=== PATIENT | female | born 1935 | race Caucasian/White ===

== ENCOUNTER 2016-10-28 10:45 | Outpatient (CLI) | payer MEDICARE, BC ==
[~2016-10-28] VITALS: Ht 160 cm; Wt 67.3 kg
--- NOTE | ~2016-10-28 | HEMODYNAMI ---
PATIENT:SILVESTRE ALDANA MEDICAL RECORD: [id number] : 33 LOCATION:[facility] ADMISSION DATE: 10/28/16 Generatedon:10/28/201613:35 Patient name: SILVESTRE ALDANA Patient #: [id number] SSN: : [id number] Date of study: 10/28/2016 Page: Of Hemodynamic Procedure Report Patient Data Patient Demographics Procedure consent was obtained First Name: SILVESTRE Gender: Female Last Name: KATYA : 1935 [facility] Initial: DOMINGO Age: 81 year(s) Patient #: [id number] Race: Unknown Additional ID: [id number] Contact details Address: [address] [place] [address] State: [place] City: [facility] Zip code: [address] Past Medical History Allergies: No known allergies Admission Admission Data Admission Date: 10/28/2016 Admission Time: 10:45 Height (in.): 65 BSA: 1.73 (m2) Height (cm.): 165.1 BMI: 24.3 (kg/m2) Weight (lbs.): 146 Weight (kg.): 66.22 Lab Results Lab Result Date: 10/28/2016 Lab Result Time: 0:00 Biochemistry Name Units Result Min Max BUN mg/dl 18 --(---*)-- 7 18 Creatinine mg/dl 0.7 --(*---)-- 0.6 1.3 CBC Name Units Result Min Max Hemoglobin g/dl 15.4 --(-*--)-- 13.5 17.5 Procedure Procedure Types Cath Procedure Diagnostic Procedure LHC LH w/Coronaries Miscellaneous Procedures Moderate Sedation up to 15 minutes Procedure Description Procedure Date Procedure Date: 10/28/2016 Procedure Start Time: 13:16 Procedure End Time: 13:31 Procedure Staff Name Function Mikhail Ashley MD Performing Physician Trisha Gonzalez RT Scrub Ge Hernandez RN Nurse Rome Byrne RT Felt Strip Finisher Kane Simpson RT Monitor Procedure Data Cath Procedure Fluoroscopy Diagnostic fluoroscopy Total fluoroscopy Time: 1.9 time: 1.9 min min Diagnostic fluoroscopy Total fluoroscopy dose: 252 dose: 252 mGy mGy Contrast Material Contrast Material Type Amount (ml) Isovue 300 42 Entry Location Entry Primary Successful Side Size Upsize Upsize Entry Closure Succes sful Closure Location (Fr) 1 (Fr) 2 (Fr) Remarks Device Remarks Femoral Right 5 Fr Exoseal artery Diagnostic catheters Device Type Used For End Catheter Placement Cordis 5Fr JL 4.0 Left Coronary Catheter (MP) Angiography Cordis 5Fr 3DRC Catheter Right Coronary (MP) Angiography Diagnostic Infinity 5Fr Right Coronary AL 1 catheter Angiography Cordis 5Fr Pigtail LV Angiography Catheter (MP) Procedure Complications No complications Procedure Medications Medication Administration Route Dosage Oxygen NC 2 l/min Lidocaine 2% added to field 20 Heparin Flush Bag added to field 2 bags (1000units/500ml NS) 0.9% NaCl I.V. 100 ml/hr Versed I.V. 1 mg Fentanyl I.V. 50 mcg Versed I.V. 1 mg Fentanyl I.V. 50 mcg Hemodynamics Rest BSA: 1.73 (m2) HGB: 15.4 (g/dl) O2 Consumption: Estimated: 149.08 (ml/min) O2 Co nsumption indexed: Estimated:86.17 (ml/min/m) Heart Rate: 61 (bpm) Pressure Samples Time Site Value (mmHg) Purpose Heart Use Rate(bpm) 13:24 LV 163/0,22 EDP 82 13:25 AO (118) Pullback 89 13:25 LV 152/5,21 Pullback 89 Gradients Valve Time Site 1 Site Mean SEP/DFP Peak To Heart Use 2 (mmHg) (sec/min) Peak Rate (mmHg) (bpm) Aortic 13:25 LV AO 19 8 89 152/5,21 (118) Calculations Valve P-P Mean Valve Index Valve Source Name Gradient Area Flow (cm2) Aortic 19 19 Snapshots Pre Cath Intra NCS Post Cath Vital Signs Time Heart Resp SPO2 etCO2 [id number] NIBP (mmHg) Rhythm Pain Sedation Rate (ipm) (%) (mmHg) (mmHg) Status Level (bpm) 13:02:15 61 23 98 0 0 160/70(133) NSR 0 (11) 10(A) , No pain 13:06:40 63 18 100 0 0 150/71(111) NSR 0 (11) 10(A) , No pain 13:11:00 62 16 98 0 0 133/68(98) NSR 0 (11) 10(A) , No pain 13:15:10 68 16 97 0 0 116/78(102) NSR 0 (11) 9(A) , No pain 13:20:17 68 17 98 0 0 140/71(116) NSR 0 (11) 9(A) , No pain 13:25:38 66 15 98 0 0 126/71(113) NSR 0 (11) 9(A) , No pain 13:29:50 64 16 98 0 0 137/60(117) NSR 0 (11) 10(A) , No pain Medications Time Medication Route Dose Verified Delivered Reason Notes Effe ctiveness by by 12:50:04 Oxygen NC 2 Mikhail Buffie used for l/min Dion Hernandez RN procedure 13:05:27 Lidocaine 2% added 20ml Mikhail Buffie for local to vial Dion Hernandez RN anesthetic field 13:05:33 Heparin Flush added 2 Mikhail Buffie used for Bag to bags Dion Hernandez RN procedure (1000units/500ml field NS) 13:05:42 0.9% NaCl I.V. 100 Mikhail Buffie Per ml/hr Dion Hernandez RN physician 13:09:03 Versed I.V. 1 mg Mikhail Buffie for Dion Hernandez RN sedation 13:09:10 Fentanyl I.V. 50 Mikhail Buffie for mcg Dion Hernandez RN sedation 13:14:19 Versed I.V. 1 mg Mikhail Buffie for Dion Hernandez RN sedation 13:14:23 Fentanyl I.V. 50 Mikhail Buffie for mcg Dion Hernandez RN sedation Procedure Log Time Note 12:47:35 Patient Height : 65 cm 12:47:44 Patient Weight : 146 kg 12:50:04 Oxygen 2 l/min NC was administered by Ge Hernandez RN; used for procedure; 13:00:58 Vital chart was started 13:04:58 ACC Patient presents with Stable Angina CCS Anginal Class 2--Slight limitation of ordinary activity. 13:05:00 Diagnostic Cath status Elective 13:05:03 Kane TOMPKINS(R) sent for patient. Start room use. 13:05:17 Time tracking: Regular hours 13:05:21 Plan of Care:Hemodynamics will remain stable., Cardiac rhythm will remain stable., Comfort level will be maintained., Respiratory function will remain adequate., Patient/ family verbilizes understanding of procedure., Procedure tolerated without complication., Recovers from procedure without complications.. 13:05:26 Patient received from Pre/Post Procedure Room to CCL 1 Alert and oriented. Tansferred to table in Supine position. 13:05:27 Lidocaine 2% 20ml vial added to field was administered by Ge Hernandez RN; for local anesthetic; 13:05:28 Warm blankets applied, and dawna hugger turned on for patient comfort. 13:05:28 Correct patient and procedure confirmed by team. 13:05:29 Signed procedure consent form obtained from patient. 13:05:31 ECG and BP/O2 sat monitors applied to patient. 13:05:32 Baseline sample Acquired. 13:05:33 Heparin Flush Bag (1000units/500ml NS) 2 bags added to field was administered by Ge Hernandez RN; used for procedure; 13:05:34 Rhythm: sinus rhythm 13:05:36 Full Disclosure recording started 13:05:42 0.9% NaCl 100 ml/hr I.V. was administered by Ge Hernandez RN; Per physician; 13:05:43 H&P Date Dictated: 10/20/2016 Within 30 days and on chart., H&P Addendum completed by physician on day of procedure. (MUST COMPLETE FOR ALL OUTPATIENTS). 13:05:44 Pre-procedure instructions explained to patient. 13:05:44 Pre-procedure instructions explained to patient. 13:05:45 Pre-op teaching completed and patient verbalized understanding. 13:05:46 Family in waiting room. 13:05:48 Patient NPO since Midnight. 13:05:55 Patient allergic to No known allergies 13:05:57 Is the patient allergic to Iodine/contrast media? No. 13:06:05 Is patient on blood thinner?No 13:06:08 Patient diabetic? No. 13:06:09 ----Pre-sedation anethsthesia assessment.---- 13:06:12 Previous problem with sedation/anesthesia? No ? 13:06:14 Snore? No 13:06:16 Sleep apnea? No 13:06:18 Deviated septum? No 13:06:20 Opens mouth fully? Yes 13:06:21 Sticks out tongue? Yes 13:06:23 Airway obstruction? No ? 13:06:25 Dentures? No ? 13:06:28 Pre procedure: right dorsailis pedis pulse 1+ Palpable, but thready & weak; easily obliterated 13:06:31 Modified Sami's test Ulnar > 7 seconds. 13:06:33 Patient pain scale 0/10 ?. 13:07:02 IV patent on arrival in left wrist with 0.9% NaCl at 10ml/hr. 13:07:23 Lab Result : BUN 18 mg/dl 13::23 Lab Result : Hemoglobin 15.4 g/dl 13:07:23 Lab Result : Creatinine 0.7 mg/dl 13:07: Lab results completed and on chart. 13:07:29 Right Radial & Right Groin area was prepped with chlora-prep and draped in sterile fashion 13:07:30 Alarms reviewed by R. N. 13:07:31 Sharps counted by scrub and verified by R.N. 13:07:31 --------ALL STOP TIME OUT------ 13:07:32 Final Timeout: patient, procedure, and site verified with staff and physician. All members of the team are in agreement. 13:07:33 Right Radial & Right Groin site verified by team. 13:07:36 Physical assessment completed. ASA score P 2 - A patient with mild systemic disease as per Mikhail Ashley MD. 13:07:40 Sedation plan: IV Moderate Sedation Versed, Fentanyl 13:09:03 Versed 1 mg I.V. was administered by Ge Hernandez RN; for sedation; 13:09:10 Fentanyl 50 mcg I.V. was administered by Ge Hernandez RN; for sedation; 13:09:32 Use device set Femoral Dx 13:09:33 Acist Syringe opened to sterile field. 13:09:33 Bag Decanter opened to sterile field. 13:09:34 Medline Cath Pack opened to sterile field. 13:09:34 Terumo 5Fr Kinder Sheath opened to sterile field. 13:09:34 St Howie 260cm J .035 wire opened to sterile field. 13:09:36 Acist Hand Control opened to sterile field. 13:09:36 Acist Manifold opened to sterile field. 13:09:37 Diagnostic Infinity 5Fr Multipack catheter opened to sterile field. 13:09:37 Tegaderm 4 x 4 opened to sterile field. 13:13:17 Zero performed for pressure channel P1 13:14:19 Versed 1 mg I.V. was administered by Ge Hernandez RN; for sedation; 13:14:23 Fentanyl 50 mcg I.V. was administered by Ge Hernandez RN; for sedation; 13:15:28 Procedure started. 13:16:07 Local anesthetic to right femoral artery with Lidocaine 2% by Mikhail Ashley MD.INITIAL ACCESS ONLY 13:16:16 A 5 Fr sheath was inserted into the Right Femoral artery 13:20:18 A Cordis 5Fr JL 4.0 Catheter (MP) was advanced over the wire and used for Left Coronary Angiography. 13:20:21 LCA angiography performed. 13:20:23 Catheter removed. 13:20:32 A Cordis 5Fr 3DRC Catheter (MP) was advanced over the wire and used for Right Coronary Angiography. 13:20:40 RCA angiography performed. 13:21:46 Catheter removed. 13:22:19 A Diagnostic Infinity 5Fr AL 1 catheter was advanced over the wire and used for Right Coronary Angiography. 13:23:23 RCA angiography performed. 13:23:23 Catheter removed. 13:23:39 A Cordis 5Fr Pigtail Catheter (MP) was advanced over the wire and used for LV Angiography. 13:23:44 LV angiography performed. 13:25:07 EF : 50 % 13:28:08 Catheter removed. 13:28:15 Cordis 5Fr Exoseal opened to sterile field. 13:28:24 Sheath removed intact; hemostasis achieved with Exoseal to the Right Femoral artery. 13:28:26 Procedure ended.(Physican Out) 13:29:54 Fluoroscopy time 01.90 minutes. 13:29:57 Fluoroscopy dose: 252 mGy 13:29:57 Flurop Dose total: 252 13:30:18 Contrast amount:Isovue 300 42ml. 13:30:20 Sharps counted by scrub and verified by R.N. 13:30:21 Insertion/operative site no bleeding no hematoma. 13:30:23 Post-op/insertion site Right Femoral artery dressed using a 4 x 4 and Tegaderm. 13:30:26 Post right femoral artery:stable 13:30:28 Post Procedure Pulses reassessed and unchanged 13:30:30 Post procedure: right dorsailis pedis pulse 1+ Palpable, but thready & weak; easily obliterated. 13:30:34 Post procedure rhythm: sinus rhythm 13:30:36 Post procedure instruction explained to patient.Patient verbalizes understanding. 13:31:03 Procedure and supply charges have been captured, reviewed, submitted and are correct. 13:31:07 Procedure Complication : No complications 13:31:12 Vital chart was stopped 13:31:12 See physician's report for complete and final results. 13:31:14 Report given to Pre/Post Procedure Room. 13:31:17 Patient transfered to Pre/Post Procedure Room with Stretcher. 13:31:19 Procedure ended. 13:31:19 Full Disclosure recording stopped 13:31:24 End room use (Document Last) Device Usage Item Name Manufacture Quantity Catalog Hospital Part Current Minimal Lo t# / Number Charge Number Stock Stock Serial# Code Acist Acist 1 67930 195960 139174 [id number] 20 Syringe [employer] Bag Microtek 1 2002S [id number] 08366 512581 5 Decanter [employer] Medline Cardinal 1 [id number] 777899 30328 589064 5 Cath Pack Health Terumo 5Fr Terumo 1 [id number] 163684 439401 586865 [address] [facility] [address] Howie 1 627469 404309 003235 326034 30 260cm J .035 wire Acist Hand Acist 1 34392 674264 210902 596821 5 Control [employer] Inc Acist Acist 1 62370 938784 571583 155855 5 Manifold [employer] Inc Diagnostic Cardinal 1 [id number] 007248 08866 097137 30 [employer] 5Fr Multipack catheter Tegaderm 4 3M 1 1626W 982480 754366 446758 5 x 4 Cordis 5Fr Cardinal 1 909608 5 JL 4.0 Health Catheter (MP) Cordis 5Fr Cardinal 1 197870 5 3DRC Health Catheter (MP) Diagnostic Cardinal 1 [id number] 558578 842715 044293 15 Infinity Health 5Fr AL 1 catheter Cordis 5Fr Cardinal 1 054395 5 Pigtail Health Catheter (MP) Cordis 5Fr Cardinal 1 EX500 337181 932724 471386 10 [facility] Health Signature Audit Philipp Stage Time Signature Unsigned Intra-Procedure 10/28/2016 Kane Simpson 1:35:23 PM RT(R) Signatures Monitor : Kane Simpson RT Signature : Date : Time : [place] [id number] [facility] [place] [address]
[2016-10-28] MEDS ORDERED: PRAVACHOL20 MG PO (11:03)
[2016-10-28] MEDS ORDERED: DURICEF500 MG PO (11:03)
[2016-10-28] MEDS ORDERED: PROTONIX40 MG PO (11:04)
[2016-10-28] MEDS ORDERED: LISINOPRIL10 MG PO (11:04)
[2016-10-28] MEDS ORDERED: BAYER CHEWABLE81 MG PO (11:05)
[2016-10-28] MEDS ORDERED: RESTORIL15 MG PO (11:05)
[2016-10-28] MEDS ORDERED: HCTZ25 MG PO (11:05)
[2016-10-28 11:19] VITALS: BP 166/61; Ht 160 cm; Wt 67.3 kg
[2016-10-28 11:33] LABS: BASOPHILS 0.4 % (0-2); EOSINOPHILS 2.9 % (0-7); HEMATOCRIT 45.6 % (36.0-48.0); HEMOGLOBIN 15.4 g/dL (12-16); LYMPHOCYTES 26.4 % (15-50); MCH 30.7 pg (26.0-34.0); MCHC 33.8 g/dL (31.0-37.0); MEAN PLATELET VOLUME 10.1 fL (7.4-10.4); MONOCYTES 9.4 % (2-11); NEUTROPHILS 60.9 % (40-80); PLATELET COUNT 271 10x3/uL (130-400); RBC 5.01 10x6/uL (4.00-5.40); RDW 12.5 % (11.5-14.5); WBC 5.6 10x3/uL (4.8-10.8)
[2016-10-28 11:40] LABS: CALC OSMOLALITY 274 mosm/kg (275-300); CALCIUM 9.6 mg/dL (8.5-10.1); CARBON DIOXIDE 27.6 mmol/L (21.0-32.0); CHLORIDE - SERUM 98 mmol/L (98-107); CREATININE - SERUM 0.7 mg/dL (0.6-1.3); GLUCOSE 109 mg/dL (74-106); POTASSIUM - SERUM 3.9 mmol/L (3.5-5.1); SODIUM 136 mmol/L (136-145); UREA NITROGEN 18 mg/dL (7-18); eGFR NON AFRICAN AMERICAN 85 mL/min (90-120)
--- NOTE | 2016-10-28 14:00 | NUR ---
RIGHT GROIN CDI, NO HEMATOMA OR BLEEDING AT SITE, SOFT TO TOUCH. FAMILY AT SIDE
--- NOTE | 2016-10-28 14:30 | NUR ---
NO CHANGES IN RIGHT GROIN, IV PATENT, FAMILY AT SIDE
--- NOTE | 2016-10-28 16:00 | NUR ---
STATES PAIN MUCH BETTER AFTER MED. 4 ON SCALE. IV D'C WITH CATH TIP INTACT, WRITTEN AND VERBAL INSTRUCTIONS GIVEN TO PT AND FRIEND. VERBAL UNDERSTANDING NOTED. D'C HOME WITH
== END 2016-10-28 16:05 | disposition home or self-care (01) ==
LOC: D.CATH 10:45
PROVIDERS: Internal Medicine Cardiovascular Disease
DX: I25.119 Atherosclerotic heart disease of native coronary artery with unspecified angina pectoris (principal); Z01.812 Encounter for preprocedural laboratory examination

== ENCOUNTER 2016-10-29 14:56 | Observation (INO) | payer MEDICARE, BC ==
[~2016-10-29] VITALS: Ht 160 cm; Wt 67.5 kg
--- NOTE | ~2016-10-29 | EMG ---
PATIENT:SILVESTRE ALDANA DATE OF SERVICE: 10/29/16 MEDICAL RECORD: [id number] DATE OF : 33 LOCATION:D.211 D.M2 ADMISSION DATE: 10/29/16 REFERRING PHYSICIAN: MIRIAM HUNT MD INTERPRETING PHYSICIAN: GENNA LUCERO MD DATE OF SERVICE: 10/31/[address] Alvarez as an inpatient, currently in room 2114. DATE OF EXAMINATION: 10/31/2016. ELECTROMYOGRAPHIC DATA: Electromyographic examination is limited to the left upper extremity and is limited to the nerve conduction studies only at this time as the patient is currently taking Plavix and aspirin. In the left upper extremity, left median motor stimulation elicits a compound motor action potential with a distal latency of 4.1 milliseconds, peak amplitude of 3 millivolts, and calculated conduction velocity of 42 meters per second. Left ulnar motor stimulation elicits a compound motor action potential with a distal latency of 3.3 milliseconds, peak amplitude of 6 millivolts, and calculated conduction velocity of 58 meters per second. Left ulnar motor stimulation across the elbow fails to elicit evidence of conduction block at this level. Antidromic left median sensory stimulation elicits a response with a distal latency of 4.6 milliseconds, amplitude of 11 microvolts and calculated conduction velocity of 46 meters per second. Antidromic left ulnar sensory stimulation elicits a response with a distal latency of 3.7 milliseconds, amplitude of 5 microvolts and calculated conduction velocity of 47 meters per second. The left median F wave is not well reproduced, but appears to have a latency of 23 milliseconds. Needle electrode examination is not performed at this time. INTERPRETATION: Electromyographic examination of the left upper extremity, limited to the nerve conduction studies only, is indicative of median neuropathy, at or distal to the wrist on the left, moderate in degree electrically, consistent with the diagnosis of left carpal tunnel syndrome. TRANSINT:[id number] Voice Confirmation ID: [id number] DOCUMENT ID: [id number] GENNA LUCERO MD CC: [id number] DICTATION DATE: 11/01/16702 HEAD OF MERCHANDISE BUYING: 11/01/16 0834 DIS IN 10/31/16 [facility] [address] [place] [address]
--- NOTE | ~2016-10-29 | HEMODYNAMI ---
PATIENT:SILVESTRE ALDANA MEDICAL RECORD: [id number] : 33 LOCATION:[facility] D.2114 ADMISSION DATE: 10/29/16 Generatedon:10/31/201610:01 Patient name: SILVESTRE ALDANA Patient #: [id number] SSN: : 1935 Date of study: 10/31/2016 Page: Of Hemodynamic Procedure Report Patient Data Patient Demographics Procedure consent was obtained First Name: SILVESTRE Gender: Female Last Name: KATYA : 1935 Middle Initial: DOMINGO Age: 81 year(s) Patient #: [id number] Race: Unknown Additional ID: [id number] Contact details Address: [address] [place] [address] State: [place] City: [facility] Zip code: [address] Past Medical History Allergies Allergen Reaction Date Comments Reported Other allergy 10/30/2016 lipitor Admission Admission Data Admission Date: 10/29/2016 Admission Time: 17:40 Room #: D2114 Lab Results Lab Result Date: 10/28/2016 Lab Result Time: 0:00 Biochemistry Name Units Result Min Max BUN mg/dl 18 --(---*)-- 7 18 Creatinine mg/dl 0.7 --(*---)-- 0.6 1.3 CBC Name Units Result Min Max Hemoglobin g/dl 15.4 --(-*--)-- 13.5 17.5 Procedure Procedure Types Cath Procedure Diagnostic Procedure [facility] PCI Procedure Coronary Stent Initial Procedure Description Procedure Date Procedure Date: 10/31/2016 Procedure Start Time: 9:44 Procedure End Time: 10:00 Procedure Staff Name Function Ari Pabon MD Performing Physician Rome Byrne RT Scrub Ge Hernandez RN Nurse Kane Simpson RT Monitor Procedure Data Cath Procedure Fluoroscopy Diagnostic fluoroscopy Total fluoroscopy Time: 5 time: 5 min min Diagnostic fluoroscopy Total fluoroscopy dose: 195 dose: 195 mGy mGy Contrast Material Contrast Material Type Amount (ml) Isovue 300 76 Entry Location Entry Primary Successful Side Size Upsize Upsize Entry Closure Succes sful Closure Location (Fr) 1 (Fr) 2 (Fr) Remarks Device Remarks Femoral Right 6 Fr Exoseal artery Short Procedure Complications No complications Procedure Medications Medication Administration Route Dosage Oxygen NC 2 l/min Lidocaine 2% added to field 20 Heparin Flush Bag added to field 2 bags (1000units/500ml NS) 0.9% NaCl I.V. 100 ml/hr Zofran I.V. 4 mg Heparin Bolus I.V. 4000 units Versed I.V. 1 mg Fentanyl I.V. 50 mcg Versed I.V. 1 mg Fentanyl I.V. 50 mcg Fentanyl I.V. 50 mcg Fentanyl I.V. 50 mcg Hemodynamics Rest HGB: 15.4 (g/dl) Heart Rate: 69 (bpm) Snapshots Pre Cath Intra NCS Post Cath Vital Signs Time Heart Resp SPO2 etCO2 [id number] NIBP (mmHg) Rhythm Pain Sedation Rate (ipm) (%) (mmHg) (mmHg) Status Level (bpm) 9:12:04 72 16 100 0 0 160/74(97) NSR 0 (11) 10(A) , No pain 9:16:07 43 18 99 0 0 135/84(101) NSR 0 (11) 10(A) , No pain 9:20:23 70 17 97 0 0 128/66(93) NSR 0 (11) 10(A) , No pain 9:24:40 67 18 95 0 0 114/60(78) NSR 0 (11) 10(A) , No pain 9:28:49 67 18 96 0 0 119/59(78) NSR 0 (11) 10(A) , No pain 9:33:59 60 16 95 0 0 108/53(86) NSR 0 (11) 10(A) , No pain 9:38:06 58 17 95 0 0 94/58(85) NSR 0 (11) 10(A) , No pain 9:42:56 66 17 96 0 0 117/62(88) NSR 0 (11) 9(A) , No pain 9:47:07 67 16 98 0 0 102/57(89) NSR 0 (11) 9(A) , No pain 9:51:13 72 15 99 0 0 117/60(105) NSR 0 (11) 9(A) , No pain 9:55:25 67 16 100 0 0 136/58(93) NSR 0 (11) 10(A) , No pain 9:59:43 66 7 99 0 0 144/56(99) NSR 0 (11) 10(A) , No pain Medications Time Medication Route Dose Verified Delivered Reason Notes Effectiveness by by 9:14:16 Oxygen NC 2 Ari Buffie used for l/min Pepper Hernandez RN procedure 9:14:54 Lidocaine 2% added 20ml Ari Ari for local to vial Pepper Pabon MD anesthetic field 9:15:00 Heparin Flush added 2 Ari Ari used for Bag to bags Pepper Pabon MD procedure (1000units/500ml field NS) 9:15:10 0.9% NaCl I.V. 100 Ari Buffie Per physician ml/hr Pepper Hernandez RN 9:15:17 Zofran I.V. 4 mg Ari Buffie Per physician Pepper Hernandez RN 9:41:23 Versed I.V. 1 mg Ari Buffie for sedation Pepper Hernandez RN 9:41:30 Fentanyl I.V. 50 Ari Buffie for sedation mcg Pepper Hernandez RN 9:45:25 Heparin Bolus I.V. 4000 Ari Buffie for verifie d units Pepper Hernandez RN anticoagulation with dr pabon 9:48:02 Versed I.V. 1 mg Ari Buffie for sedation Pepper Hernandez RN 9:48:06 Fentanyl I.V. 50 Ari Buffie for sedation mcg Pepper Hernandez RN 9:52:51 Fentanyl I.V. 50 Ari Buffie for sedation mcg Pepper Hernandez RN 9:55:16 Fentanyl I.V. 50 Ari Buffie for sedation mcg Pepper Hernandez RN Procedure Log Time Note 8:45:48 ACC Patient presents with Unstable Angina CCS Anginal Class 3--Marked limitation of physical activity, angina occurs with ordinary activity.. 8:45:53 Diagnostic Cath status Urgent 8:45:55 Kane Simpson RT(R) sent for patient. Start room use. 8:45:56 Time tracking: Regular hours 8:46:01 Plan of Care:Hemodynamics will remain stable., Cardiac rhythm will remain stable., Comfort level will be maintained., Respiratory function will remain adequate., Patient/ family verbilizes understanding of procedure., Procedure tolerated without complication., Recovers from procedure without complications.. 9:02:12 Patient received from PCU to CCL 1 Alert and oriented. Tansferred to table in Supine position. 9:02:13 Warm blankets applied, and dawna hugger turned on for patient comfort. 9:02:14 Correct patient and procedure confirmed by team. 9:02:15 Signed procedure consent form obtained from patient. 9:02:15 ECG and BP/O2 sat monitors applied to patient. 9:02:25 IV left antecubital D/C'd due to infiltration. 9:02:55 Lab results completed and on chart. 9:03:06 H&P Date Dictated: 10/30/2016 Within 30 days and on chart.. 9:03:07 Pre-procedure instructions explained to patient. 9:03:08 Pre-op teaching completed and patient verbalized understanding. 9:03:10 Family in patients room. 9:03:11 Patient NPO since Midnight. 9:03:13 Is the patient allergic to Iodine/contrast media? No. 9:04:06 Is patient on blood thinner?Yes 9:04:10 ACC The patient was administered the following blood thiners within the last 24 hours: ACCPlavix 9:04:15 Patient diabetic? No. 9:04:17 Patient not . Patient is over age 55. 9:04:25 Previous problem with sedation/anesthesia? Yes Nausea 9:04:37 Snore? No 9:04:39 Sleep apnea? No 9:04:41 Deviated septum? No 9:04:42 Opens mouth fully? Yes 9:04:43 Sticks out tongue? Yes 9:04:49 Airway obstruction? Yes Asthma 9:05:18 Dentures? No ? 9:05:21 Pre procedure: right dorsailis pedis pulse 1+ Palpable, but thready & weak; easily obliterated 9:05:25 Patient pain scale 0/10 ?. 9:06:22 IV started by Ge Hernandez RN inright forearm with a 22 gauge IV catheter with 0.9% NaCl at KVO. 9:06:31 22g IV Catheter opened to sterile field. 9:10:45 Vital chart was started 9:10:46 Baseline sample Acquired. 9:10:49 Rhythm: sinus rhythm 9:10:51 Full Disclosure recording started 9:10:57 Right groin area was prepped with chlora-prep and draped in sterile fashion 9::58 Alarms reviewed by R. N. 9::58 Sharps counted by scrub and verified by R.N. 9:14:16 Oxygen 2 l/min NC was administered by Ge Hernandez RN; used for procedure; 9:14:54 Lidocaine 2% 20ml vial added to field was administered by Ari Pabon MD; for local anesthetic; 9:15:00 Heparin Flush Bag (1000units/500ml NS) 2 bags added to field was administered by Ari Pabon MD; used for procedure; 9:15:10 0.9% NaCl 100 ml/hr I.V. was administered by Ge Hernandez RN; Per physician; 9:15:17 Zofran 4 mg I.V. was administered by Ge Hernandez RN; Per physician; 9:21:15 Medtronic Launcher 6Fr AR 1.0 guide catheter opened to sterile field. 9:21:23 Pride Whisper J 300cm 0.014 guide wire opened to sterile field. 9:21:38 Use device set Femoral PCI 9:21:39 Acist Syringe opened to sterile field. 9:21:40 Acist Hand Control opened to sterile field. 9:21:40 Bag Decanter opened to sterile field. 9:21:41 Medline Cath Pack opened to sterile field. 9:21:41 Terumo 6Fr Barnum Sheath opened to sterile field. 9:21:41 St Howie 260cm J .035 wire opened to sterile field. 9:21:44 Merit BasixCompak Inflation Kit opened to sterile field. 9:21:45 Acist Manifold opened to sterile field. 9:21:45 Tegaderm 4 x 4 opened to sterile field. 9:39:26 --------ALL STOP TIME OUT------ 9:39:27 Final Timeout: patient, procedure, and site verified with staff and physician. All members of the team are in agreement. 9:39:28 Right groin site verified by team. 9:39:31 Physical assessment completed. ASA score P 2 - A patient with mild systemic disease as per Ari Pabon MD. 9:39:35 Sedation plan: IV Moderate Sedation Versed, Fentanyl 9:41:23 Versed 1 mg I.V. was administered by Ge Hernandez RN; for sedation; 9:41:30 Fentanyl 50 mcg I.V. was administered by Ge Hernandez RN; for sedation; 9:41:38 Zero performed for pressure channel P1 9:44:13 Procedure started. 9:44:23 Local anesthetic to right femoral artery with Lidocaine 2% by Ari Pabon MD.INITIAL ACCESS ONLY 9:44:34 A 6 Fr Short sheath was inserted into the Right Femoral artery 9:44:40 Cordis 6Fr Exoseal opened to sterile field. 9:44:46 ACC Pre-intervention LALITA Flow is 3. 9:45:01 6 Fr AR 1 guide catheter was inserted over the wire 9:45:25 Heparin Bolus 4000 units I.V. was administered by Ge Hernandez RN; for anticoagulation; verified with dr pabon 9:45:31 Catheter removed. unable to cannulate vessel. 9:46:09 Medtronic Launcher 6Fr AR 2.0 guide catheter opened to sterile field. 9:46:15 6 Fr AR 2 guide catheter was inserted over the wire 9:47:34 WHISPER wire advanced. 9:48:02 Versed 1 mg I.V. was administered by Ge Hernandez RN; for sedation; 9:48:06 Fentanyl 50 mcg I.V. was administered by Ge Hernandez RN; for sedation; 9:49:13 Study PCI Site: [place] pRCA has 80% stenosis. 9:51:09 Inflation Number: 1 A Eyad OTW 3.5 x 26 stent was prepped and advanced across the Prox RCA. The stent was deployed at 29 JACINTA for 0:12 (min:sec). 9:51:54 Inflation number: 2 The stent balloon was then re-inflated across the Prox RCA to 3 JACINTA for 0:08 (min:sec). 9:52:51 Fentanyl 50 mcg I.V. was administered by Ge Hernandez RN; for sedation; 9:52:55 Stent catheter was removed intact over wire. 9:52:56 Wire removed. 9:52:57 Guide catheter removed. 9:53:03 Contrast amount:Isovue 300 76ml. 9:53:09 Sheath removed intact; hemostasis achieved with Exoseal to the Right Femoral artery. 9:53:12 Procedure ended.(Physican Out) 9:54:58 Fluoroscopy time 05.00 minutes. 9:55:08 Fluoroscopy dose: 195 mGy 9:55:08 Flurop Dose total: 195 9:55:10 Sharps counted by scrub and verified by R.N. 9:55:11 Insertion/operative site no bleeding no hematoma. 9:55:13 Post-op/insertion site Right Femoral artery dressed using a 4 x 4 and Tegaderm. 9:55:16 Fentanyl 50 mcg I.V. was administered by Ge Hernandez RN; for sedation; 9:55:16 Post right femoral artery:stable 9:55:18 Post Procedure Pulses reassessed and unchanged 9:55:20 Post procedure: right dorsailis pedis pulse 1+ Palpable, but thready & weak; easily obliterated. 9:55:47 Post procedure rhythm: sinus rhythm 9:55:48 Post procedure instruction explained to patient.Patient verbalizes understanding. 10:00:14 Procedure and supply charges have been captured, reviewed, submitted and are correct. 10:00:20 Procedure Complication : No complications 10:00:23 Vital chart was stopped 10:00:23 See physician's report for complete and final results. 10:00:28 Report given to PCU. 10:00:31 Patient transfered to PCU with Bed. 10:00:33 Procedure ended. 10:00:33 Full Disclosure recording stopped 10:00:47 ACC-PCI Only Patient was given prescriptions, or instructed by Ari Pabon MD to start/continue the following medications upon discharge: Aspirin, Plavix 10:00:50 End room use (Document Last) Intervention Summary Intervention Notes Time ActionType Lesion and Equipment Action# Pressure Duration Attributes Used 9:51:09 Place stent Prox RCA Eyad OTW 1 29 00:12 3.5 x 26 stent 9:51:54 Reinflate Prox RCA Eyad OTW 2 3 00:08 stent 3.5 x 26 balloon stent Device Usage Item Name Manufacture Quantity Catalog Hospital Part Current Minima l Lot# / Number Charge Number Stock Stock Serial# Code 22g IV B. Floyd 1 [id number] [id number] 5 Catheter Medtronic Medtronic 1 [id number] 12487 [id number] 1 Launcher 6Fr AR 1.0 guide catheter Pride Pride 1 [id number] 508745 995479 789757 5 Whisper J Vascular 300cm 0.014 guide wire Acist Acist 1 42841 619986 383509 114479 20 Syringe [employer] Inc Acist Hand Acist 1 54025 929427 966628 072080 5 Control Medical Systems Inc Bag Microtek 1 2002S 087266 97807 633536 5 DecmcTEL Medical Inc. Medline Cardinal 1 [id number] 773229 85434 937849 5 Cath Pack Health Terumo 6Fr Terumo 1 [id number] 753314 936626 741618 [address] Howie 1 098133 078064 181608 040426 30 260cm J .035 wire [facility] Merit 1 [id number] 272761 324807 133088 15 BasixCompak Medical Inflation Kit Acist Acist 1 25800 748368 626647 496980 5 [email or web address] Inc Tegaderm 4 3M 1 1626W 765584 761847 246580 5 x 4 Cordis 6Fr Cardinal 1 EX600 797004 408803 482590 10 [facility] Medtronic Medtronic 1 [id number] 223223 17539 865333 1 Launcher 6Fr AR 2.0 guide catheter [place] OTW Medtronic 1 [id number] 189293 7655972 058824 5 [id number] 3.5 x 26 stent Signature Audit [place] Stage Time Signature Unsigned Intra-Procedure 10/31/2016 Kane Simpson 10:01:13 AM RT(R) Signatures Monitor : Kane Simpson RT Signature : Date : Time : [facility] [address] [place] [address]
--- NOTE | ~2016-10-29 | HEMODYNAMI ---
PATIENT:SILVESTRE ALDANA MEDICAL RECORD: [id number] : 33 [facility] D[id number] ADMISSION DATE: 10/29/16 Generatedon:10/30/20168:46 Patient name: SILVESTRE ALDANA Patient #: [id number] SSN: : 1935 Date of study: 10/30/2016 Page: Of Hemodynamic Procedure Report Patient Data Patient Demographics Procedure consent was obtained First Name: SILVESTRE Gender: Female Last Name: KATYA : 1935 Middle Initial: DOMINGO Age: 81 year(s) Patient #: [id number] Race: Unknown Additional ID: [id number] Contact details Address: [address] [place] [address] State: [place] City: [facility] Zip code: [address] Past Medical History Allergies Allergen Reaction Date Comments Reported Other allergy 10/30/2016 lipitor Admission Admission Data Admission Date: 10/29/2016 Admission Time: 17:40 Room #: D2114 Lab Results Lab Result Date: 10/28/2016 Lab Result Time: 0:00 Biochemistry Name Units Result Min Max BUN mg/dl 18 --(---*)-- 7 18 Creatinine mg/dl 0.7 --(*---)-- 0.6 1.3 CBC Name Units Result Min Max Hemoglobin g/dl 15.4 --(-*--)-- 13.5 17.5 Procedure Procedure Types Cath Procedure PCI Procedure Coronary Stent Initial x2 Miscellaneous Procedures Moderate Sedation up to 15 minutes Procedure Description Procedure Date Procedure Date: 10/30/2016 Procedure Start Time: 8:26 Procedure End Time: 8:41 Procedure Staff Name Function Ari Pabon MD Performing Physician Rome Byrne RT Scrub Eb Parker RN Nurse Kasie Landa RT Monitor Ge Hernandez RN Nurse Trisha Gonzalez RT Nurse Transition Procedure Data Cath Procedure Fluoroscopy Diagnostic fluoroscopy Total fluoroscopy Time: 3.5 time: 3.5 min min Diagnostic fluoroscopy Total fluoroscopy dose: 231 dose: 231 mGy mGy Contrast Material Contrast Material Type Amount (ml) Isovue 300 67 Entry Location Entry Primary Successful Side Size Upsize Upsize Entry Closure Succes sful Closure Location (Fr) 1 (Fr) 2 (Fr) Remarks Device Remarks Femoral Left 6 Fr Exoseal artery Short Estimated blood loss: 10 ml Procedure Complications No complications Procedure Medications Medication Administration Route Dosage Oxygen NC 2 l/min Lidocaine 2% added to field 20 Heparin Flush Bag added to field 2 bags (1000units/500ml NS) 0.9% NaCl I.V. 100 ml/hr Zofran I.V. 4 mg Versed I.V. 1 mg Fentanyl I.V. 50 mcg Heparin Bolus I.V. 4000 units Versed I.V. 1 mg Fentanyl I.V. 50 mcg Fentanyl I.V. 25 mcg Plavix P.O. 75 mg Hemodynamics Rest HGB: 15.4 (g/dl) Heart Rate: 71 (bpm) Snapshots Pre Cath Intra NCS Post Cath Vital Signs Time Heart Resp SPO2 etCO2 BU6muix NIBP (mmHg) Rhythm Pain Sedation Rate (ipm) (%) (mmHg) (mmHg) Status Level (bpm) 8:08:51 67 17 98 0 0 172/83(94) NSR 0 (11) 10(A) , No pain 8:13:09 74 22 97 0 0 172/90(117) NSR 0 (11) 10(A) , No pain 8:17:33 69 16 96 0 0 147/71(119) NSR 0 (11) 10(A) , No pain 8:21:50 67 15 99 0 0 147/73(121) NSR 0 (11) 10(A) , No pain 8:26:10 68 17 95 0 0 151/59(120) NSR 0 (11) 9(A) , No pain 8:30:28 69 15 99 0 0 134/66(102) NSR 0 (11) 9(A) , No pain 8:34:38 78 16 99 0 0 153/78(143) NSR 0 (11) 9(A) , No pain 8:38:41 81 16 99 0 0 144/79(101) NSR 0 (11) 9(A) , No pain 8:44:03 69 16 99 0 0 157/72(115) NSR 0 (11) 10(A) , No pain Medications Time Medication Route Dose Verified Delivered Reason Notes Effectiveness by by 8:14:19 Oxygen NC 2 Ari Buffie used for l/min Pepper Hernandez RN procedure 8:14:28 Lidocaine 2% added 20ml Ari Ari for local to vial Pepper Pabon MD anesthetic field 8:14:35 Heparin Flush added 2 Ari Ari used for Bag to bags Pepper Pabon MD procedure (1000units/500ml field NS) 8:14:43 Zofran I.V. 4 mg Ari Buffie used for pt has Pepper Hernandez RN procedure nausea with anesthesia 8:14:43 0.9% NaCl I.V. 100 Ari Buffie Per physician ml/hr Pepper Hernandez RN 8:24:35 Versed I.V. 1 mg Ari Buffie for sedation Pepper Hernandez RN 8:24:38 Fentanyl I.V. 50 Ari Buffie for sedation mcg Pepper Hernandez RN 8:25:29 Heparin Bolus I.V. 4000 Ari Edenie for verifie d units Pepper Hernandez RN anticoagulation with dr pabon 8:27:17 Versed I.V. 1 mg Ari Buffie for sedation Pepper Hernandez RN 8:27:23 Fentanyl I.V. 50 Ari Buffie for sedation mcg Pepper Hernandez RN 8:32:32 Fentanyl I.V. 25 Ari Buffie for sedation mcg Pepper Hernandez RN 8:41:46 Plavix P.O. 75 mg Ari Edenie for Pepper Hernandez RN antiplatelet therapy Procedure Log Time Note 7:49:24 Eb Parker RN sent for patient. Start room use. 7:49:25 Time tracking: Regular hours 7:49:29 Plan of Care:Hemodynamics will remain stable., Cardiac rhythm will remain stable., Comfort level will be maintained., Respiratory function will remain adequate., Patient/ family verbilizes understanding of procedure., Procedure tolerated without complication., Recovers from procedure without complications.. 8:01:36 Patient received from PCU to CCL 1 Alert and oriented. Tansferred to table in Supine position. 8:01:38 Warm blankets applied, and dawna hugger turned on for patient comfort. 8:01:39 Correct patient and procedure confirmed by team. 8:01:41 Signed procedure consent form obtained from patient. 8:01:41 ECG and BP/O2 sat monitors applied to patient. 8:07:40 Vital chart was started 8:09:58 Full Disclosure recording started 8:10:02 Rhythm: sinus rhythm 8:12:14 H&P Date Dictated: 10/29/2016 Within 30 days and on chart.. 8:12:16 Pre-procedure instructions explained to patient. 8:12:16 Pre-op teaching completed and patient verbalized understanding. 8:12:18 Family unavailable. 8:12:25 Patient NPO since Midnight. 8:12:35 Patient allergic to Other allergylipitor 8:12:38 Is the patient allergic to Iodine/contrast media? No. 8:12:39 Is patient on blood thinner?Yes 8:12:42 ACC The patient was administered the following blood thiners within the last 24 hours: ACCAspirin, ACCPlavix 8:12:44 Patient diabetic? No. 8:12:48 Previous problem with sedation/anesthesia? Yes Nausea 8:13:31 Sleep apnea? No 8:13:34 Deviated septum? No 8:13:35 Opens mouth fully? Yes 8:13:35 Sticks out tongue? Yes 8:13:38 Airway obstruction? Yes Asthma 8:13:43 Dentures? No ? 8:14:01 Pre procedure: left posterior tibial pulse 2+ Normal; easily identifiable; not easily obliterated 8:14:03 Patient pain scale 0/10 ?. 8:14:12 IV patent on arrival in right antecubital with 0.9% NaCl at KVO. 8:14:17 Lab results completed and on chart. 8:14:19 Oxygen 2 l/min NC was administered by Ge Hernandez RN; used for procedure; 8:14:21 Left groin area was prepped with chlora-prep and draped in sterile fashion 8:14:23 Alarms reviewed by R. N. 8:14:24 Sharps counted by scrub and verified by R.N. 8:14:28 Lidocaine 2% 20ml vial added to field was administered by Ari Pabon MD; for local anesthetic; 8:14:35 Heparin Flush Bag (1000units/500ml NS) 2 bags added to field was administered by Ari Pabon MD; used for procedure; 8:14:43 Zofran 4 mg I.V. was administered by Ge Hernandez RN; used for procedure; pt has nausea with anesthesia 8::43 0.9% NaCl 100 ml/hr I.V. was administered by Ge Hernandez RN; Per physician; 8:15:20 Use device set Femoral PCI 8:15:22 Acist Syringe opened to sterile field. 8:15:22 Acist Hand Control opened to sterile field. 8:15:23 Bag Decanter opened to sterile field. 8:15:24 Medline Cath Pack opened to sterile field. 8:15:24 Terumo 6Fr [place] Sheath opened to sterile field. 8:15:25 Merit BasixCompak Inflation Kit opened to sterile field. 8:15:26 St Howie 260cm J .035 wire opened to sterile field. 8:15:26 Acist Manifold opened to sterile field. 8:15:27 Tegaderm 4 x 4 opened to sterile field. 8:15:33 Pride Whisper J 300cm 0.014 guide wire opened to sterile field. 8:16:12 Baseline sample Acquired. 8:22:18 Physician paged 8:23:28 Final Timeout: patient, procedure, and site verified with staff and physician. All members of the team are in agreement. 8:23:33 Left groin site verified by team. 8:23:36 Physical assessment completed. ASA score P 2 - A patient with mild systemic disease as per Ari Pabon MD. 8:23:39 Sedation plan: IV Moderate Sedation Versed, Fentanyl 8:24:35 Versed 1 mg I.V. was administered by Ge Hernandez RN; for sedation; 8:24:35 Zero performed for pressure channel P1 8:24:38 Fentanyl 50 mcg I.V. was administered by Ge Hernandez RN; for sedation; 8:24:46 Zero performed for pressure channel P1 8:25:29 Heparin Bolus 4000 units I.V. was administered by Ge Hernandez RN; for anticoagulation; verified with dr pabon 8:26:21 Physician arrived 8:26:22 Physician arrived 8:26:40 Procedure started. 8:26:58 Local anesthetic to left femerol artery with Lidocaine 2% by Ari Pabon MD.INITIAL ACCESS ONLY 8:27:17 Versed 1 mg I.V. was administered by Ge Hernandez RN; for sedation; 8:27:17 A 6 Fr Short sheath was inserted into the Left Femoral artery 8:27:23 Fentanyl 50 mcg I.V. was administered by Ge Hernandez RN; for sedation; 8:29:40 Cordis 6FR XBLAD 3.5 guide catheter opened to sterile field. 8:29:59 6 Fr XBLAD 3.5 guide catheter was inserted over the wire 8:30:04 Whis wire advanced. 8:30:19 Wire advanced across lesion. 8:32:29 Inflation Number: 1 A Breezewood OTW 2.25 x 26 stent was prepped and advanced across the Mid CX. The stent was deployed at 13 JACINTA for 0:16 (min:sec). 8:32:32 Fentanyl 25 mcg I.V. was administered by Ge Hernandez RN; for sedation; 8:33:26 Wire redirected to LAD. 8:35:18 Inflation Number: 1 A Eyad OTW 3.0 x 18 stent was prepped and advanced across the Prox LAD. The stent was deployed at 17 JACINTA for 0:10 (min:sec). 8:35:24 Wire removed. 8:35:26 Guide catheter removed. 8:36:10 Cordis 6Fr Exoseal opened to sterile field. 8:37:02 Sheath removed intact; hemostasis achieved with Exoseal to the Left Femoral artery. 8:38:00 Procedure ended.(Physican Out) 8:38:11 Fluoroscopy time 03.50 minutes. 8:38:15 Flurop Dose total: 231 8:38:15 Fluoroscopy dose: 231 mGy 8:38:19 Contrast amount:Isovue 300 67ml. 8:38:21 Sharps counted by scrub and verified by R.N. 8:38:23 Insertion/operative site no bleeding no hematoma. 8:38:27 Post-op/insertion site Left Femoral artery dressed using a 4 x 4 and Tegaderm. 8:39:10 Post left femerol artery:stable 8:39:13 Post Procedure Pulses reassessed and unchanged 8:39:16 Post procedure rhythm: unchanged. 8:39:20 Estimated blood loss: 10 ml 8:39:21 Post procedure instruction explained to patient.Patient verbalizes understanding. 8:39:37 Procedure type changed to Cath procedure, PCI procedure, Coronary Stent Initial x2, Miscellaneous Procedures, Moderate Sedation up to 15 minutes 8:39:39 Procedure and supply charges have been captured, reviewed, submitted and are correct. 8:40:39 Procedure Complication : No complications 8:40:46 Vital chart was stopped 8:40:47 See physician's report for complete and final results. 8:41:03 Report given to Med II. 8:41:08 Procedure ended. 8:41:08 Full Disclosure recording stopped 8:41:14 End room use (Document Last) 8:41:46 Plavix 75 mg P.O. was administered by Ge Hernandez RN; for antiplatelet therapy; Intervention Summary Intervention Notes Time ActionType Lesion and Equipment Action# Pressure Duration Attributes Used 8:32:29 Place stent Mid CX Breezewood OTW 1 13 00:16 2.25 x 26 stent 8:35:18 Place stent Prox LAD Breezewood OTW 1 17 00:10 3.0 x 18 stent Device Usage Item Name Manufacture Quantity Catalog Hospital Part Current Minima l Lot# / Number Charge Number Stock Stock Serial# Code Acist Acist 1 83584 630037 505901 331785 20 Syringe Medical Systems Inc Acist Hand Acist 1 76260 065866 134202 130416 5 Control Medical Systems Inc Bag Microtek 1 2002S 524061 71618 747292 5 DUHEM Inc. Medline Cardinal 1 [id number] 059647 95295 009295 5 Cath Pack Health Terumo 6Fr Terumo 1 [id number] 794732 317160 412084 40 [place] Sheath Merit Merit 1 [id number] 123301 357082 447745 15 BasixCompak Medical Inflation Kit [address] [facility]ie [address] Howie 1 984909 756118 346999 144568 30 260cm J .035 wire Acist Acist 1 25859 615610 347525 594525 5 Manifold Medical Systems Inc Tegaderm 4 3M 1 1626W 938724 901859 731824 5 x 4 Pride Pride 1 [id number] 289853 491785 342600 5 Whisper J Vascular 300cm 0.014 guide wire Cordis 6FR Cardinal 1 [id number] 041888 031662 525946 10 XBLAD 3.5 Health guide catheter Eyad OTW Medtronic 1 [id number] 857627 50999 443189 5 [id number] 2.25 x 26 stent Breezewood OTW Medtronic 1 [id number] 520485 5967422 736725 5 [id number] 3.0 x 18 stent Cordis 6Fr Cardinal 1 EX600 852994 795375 565159 10 [facility] Health Signature Audit [place] Stage Time Signature Unsigned Intra-Procedure 10/30/2016 Trisha Gonzalez 8:46:41 AM RT(R) Signatures Monitor : Kasie Signature : Counts RT Date : Time : [id number] [place] [address]
[~2016-10-29 14:56] MED LIST: BAYER CHEWABLE81 MG PO; DURICEF500 MG PO; HCTZ25 MG PO; LISINOPRIL10 MG PO; PRAVACHOL20 MG PO; PROTONIX40 MG PO; RESTORIL15 MG PO
[2016-10-29 16:07] LABS: HEMATOCRIT 42.8 % (36.0-48.0); HEMOGLOBIN 14.5 g/dL (12-16); LYMPHOCYTES 24.3 % (15-50); MCH 30.4 pg (26.0-34.0); MCHC 33.9 g/dL (31.0-37.0); MCV 89.7 fL (80.0-100.0); MEAN PLATELET VOLUME 9.6 fL (7.4-10.4); NEUTROPHILS 65.2 % (40-80); PLATELET COUNT 224 10x3/uL (130-400); RBC 4.77 10x6/uL (4.00-5.40); RDW 12.3 % (11.5-14.5); WBC 5.8 10x3/uL (4.8-10.8)
[2016-10-29 16:23] LABS: ALBUMIN 3.4 g/dL (3.4-5.0); ALKALINE PHOSPHATASE 63 U/L (46-116); ALT (SGPT) 20 U/L (10-68); BILIRUBIN - TOTAL 0.44 mg/dL (0.2-1.3); CALC OSMOLALITY 272 mosm/kg (275-300); CALCIUM 8.5 mg/dL (8.5-10.1); CARBON DIOXIDE 29.7 mmol/L (21.0-32.0); CHLORIDE - SERUM 99 mmol/L (98-107); CREATININE - SERUM 0.7 mg/dL (0.6-1.3); GLUCOSE 107 mg/dL (74-106); POTASSIUM - SERUM 3.8 mmol/L (3.5-5.1); PROTEIN - SERUM 6.4 g/dL (6.4-8.2); SODIUM 136 mmol/L (136-145); UREA NITROGEN 14 mg/dL (7-18); eGFR NON AFRICAN AMERICAN 85 mL/min (90-120)
[2016-10-29 16:24] LABS: INR 0.86 (0.85-1.17); PROTIME 11.5 SECONDS (11.6-15.0)
[2016-10-29 16:37] LABS: CKMB 0.6 U/L (0.0-3.6); CREATINE KINASE 49 UL (21-215); PRO BNP 182 pg/mL (0-450); TROPONIN-I 0.027 ng/mL (0.000-0.060)
[2016-10-29 19:00] VITALS: BP 110/39
--- NOTE | 2016-10-29 19:35 | NUR ---
ARRIVED TO FLOOR VIA STRETCHER, ACCOMPANIED BY HOSPITAL STAFF AND FAMILY. ORIENTED TO UNIT AND PLACED ON TELEMETRY. PLAN OF CARE DISCUSSED. CALL LIGHT IN REACH. WILL CONTINUE TO MONITOR. SEE NURSE ASSESSMENT.
[2016-10-30] VITALS: BP 149/51
--- NOTE | 2016-10-30 07:58 | NUR ---
PRE-OPS GIVEN. TO SONG AND DANCE PERFORMER BY BED.
[2016-10-30 08:17] VITALS: BP 131/45
--- NOTE | 2016-10-30 09:07 | NUR ---
BACK FROM FORM TAMPER. VS WNL. RIGHT GROIN STABLE WITHOUT BLEEDING OR HEMATOMA NOTED. WILL MONITOR.
--- NOTE | 2016-10-30 09:07 | NUR ---
BACK FROM ELECTRIC GAS APPLIANCES DEMONSTRATOR. VS WNL. LEFT GROIN STABLE WITHOUT BLEEDING OR HEMATOMA NOTED. WILL MONITOR.
--- NOTE | 2016-10-30 10:25 | NUR ---
NORCO 10 AND WARM PACK APPLIED TO KNOT UNDER ARM. WILL MONITOR.
[2016-10-30 12:22] VITALS: Ht 160 cm; Wt 67.5 kg
--- NOTE | 2016-10-30 12:55 | NUR ---
BEDREST UP. GROIN STABLE.
[2016-10-30 16:03] VITALS: BP 143/44
--- NOTE | 2016-10-30 19:41 | NUR ---
RESUMED CARE OF PT, LYING IN BED RESPIRATIONS EVEN AND [id number] ON ROOM AIR. LEFT GROIN C/D/I, PEDAL PULSES PALPABLE. LEFT AC SALINE LOCKED. 94 SR ON TELEMETRY. ICE PACK APPLIED TO BACK OF NECK FOR SORENESS. NO FURTHER NEEDS AT THIS TIME. WILL CONTINUE TO MONITOR. SEE NURSE ASSESSMENT.
[2016-10-30 20:00] VITALS: BP 150/51
[2016-10-31] VITALS: BP 138/51
--- NOTE | 2016-10-31 01:14 | NUR ---
LYING IN BED WITH EYES CLOSED, CALL LIGHT IN REACH. WILL CONTINUE TO MONITOR.
[2016-10-31 04:00] VITALS: BP 130/46
--- NOTE | 2016-10-31 06:35 | NUR ---
NO CHANGES FROM PREVIOUS ASSESSMENT, CALL LIGHT IN REACH. REMAINS NPO.
[2016-10-31 07:54] VITALS: BP 121/43
--- NOTE | 2016-10-31 09:21 | NUR ---
PRE-OPS GIVEN. TO CHILD SUPPORT INVESTIGATOR BY BED.
--- NOTE | 2016-10-31 10:23 | NUR ---
BACK FROM BUSINESS WRITER. VS WNL. RIGHT GROIN STABLE WITHOUT BLEEDING OR HEMATOMA NOTED. WILL CONT. PLAN OF CARE.
[2016-10-31] MEDS ORDERED: PLAVIX75 MG PO (10:43)
--- NOTE | 2016-10-31 11:24 | OP ---
PATIENT NAME: SILVESTRE ALDANA MEDICAL RECORD: [id number] :33 LOCATION:D.M2 D.2114 ADMISSION DATE:10/29/16 SURGEON: MIRIAM HUNT MD DATE OF OPERATION: 10/30/2016 PROCEDURES: 1. PTCA stent left circumflex. 2. PTCA stent LAD. 3. Selective coronary angiography. INDICATION: Unstable angina. PROCEDURE IN DETAIL: After informed consent was obtained and after detailed explanation of risks, benefits as well as alternative therapies, the patient elected to proceed with angiogram and angioplasty. The left femoral area was prepped and draped in normal sterile fashion. Left femoral artery was cannulated via modified Seldinger technique with placement of 6-Tristanian sheath. All catheters exchanged through this sheath. FINDINGS: The left circumflex has 90% stenosis addressed with a 2.25 x 26 mm Eyad stent. Result was 0% residual stenosis throughout. Left anterior descending has a 90% stenosis addressed with a 3.0 x 18 mm Asher stent. Result was 0% residual stenosis. OVERALL IMPRESSION: Successful percutaneous transluminal coronary angioplasty stent of the left circumflex and left anterior descending both going from 90% initial stenosis to 0% residual. TRANSINT:[id number] Voice Confirmation ID: [id number] DOCUMENT ID: [id number] MIRIAM HUNT MD at 1124 CC: [id number] DICTATION DATE: 10/30/16 0840 ONCOLOGY TRANSPLANT NETWORK MANAGER: 10/30/16 1105 ADM IN [id number] [place] [address]
--- NOTE | 2016-10-31 11:24 | HP ---
PATIENT: SILVESTRE TAYLOR MEDICAL RECORD: [id number] ACCOUNT: [id number] LOCATION:D. D.2114 : 33 ADMISSION DATE: 10/29/16 HISTORY AND PHYSICAL EXAMINATION DIAGNOSES: 1. Unstable angina. 2. Coronary artery disease. 3. Hyperlipidemia. 4. Hypertension. HISTORY OF PRESENT ILLNESS: Mrs. Taylor presented with anginal symptomatology this last week, found to have 3-vessel coronary artery disease, was discharged home with the plan being possible cardiac surgery or possible multivessel percutaneous transluminal coronary angioplasty stent. Her angina has worsened. She wants multivessel PTCA stent. I reviewed the film. She has very significant stenosis of the LAD and circumflex, as well as significant stenosis of the RCA. All are amenable to PTCA stent. PHYSICAL EXAMINATION: GENERAL APPEARANCE: Well-nourished, well-developed, appears stated age. Level of distress, comfortable. PSYCHIATRIC: Mental status, alert, normal affect. Orientation, oriented to time, place and person. EYES: Lids and conjunctiva, noninjected. No discharge, no pallor. ENT: Lips, teeth, gums, normal dentition. Oropharynx, no cyanosis, no pallor. NECK: Carotid arteries, bilateral normal upstroke, no bruits, no thrills. JUGULAR VEINS: No jugular venous pressure or distention. CERVICAL LYMPH NODES: Nontender, nonenlarged. THYROID: Not enlarged. Nontender. No nodules. LUNGS: Respiratory effort, unlabored. CHEST: Normal curvature. No thoracic deformity. No chest wall tenderness. Percussion, resonant. Auscultation, clear. No wheezes, no rales, no rhonchi. CARDIOVASCULAR: Precordial exam, nondisplaced. No heaves or pericardial thrills. Rate and rhythm, regular. Heart sounds, normal S1, normal S2. No S3, no gallop, no rub. Systolic murmur, not heard. Diastolic murmur, not heard. EXTREMITIES: No cyanosis, no edema. Peripheral pulses, full and equal in all extremities, except as noted. No bruits appreciated. ABDOMEN: Soft, nondistended. Normal aorta. No bruit. Nontender. No masses. Liver, nontender, no hepatomegaly. Spleen, nontender, no splenomegaly. MUSCULOSKELETAL: No joint tenderness. No joint swelling. No erythema. NEUROLOGICAL: Normal gait, normal strength, normal tone. SKIN: Warm and dry. REVIEW OF SYSTEMS: The patient reports easy bruising but reports no swollen glands. The patient reports no fever, no night sweats, no significant weight gain, no significant weight loss. No significant exercise tolerance. The patient reports no dry eyes, no irritation, no vision change. Patient reports no difficulty hearing and no ear pain. Patient reports no frequent nose bleeds or nose and sinus problems. Patient reports on arm pain on exertion. No shortness of breath while lying down. No history of heart murmur. Patient reports no cough, no wheezing or coughing up blood. Patient reports no abdominal pain, no vomiting. Normal appetite. No diarrhea and not vomiting blood. No nausea and no constipation. Patient reports no incontinence. No difficulty urinating. No hematuria. No increased frequency. Patient reports HISTORY AND PHYSICAL [id number] SILVESTRE TAYLOR no muscle aches. No weakness, no arthralgias, no back pain. No swelling of the extremities. Patient reports no abnormal mole, no jaundice, no rashes. Reports no loss of consciousness. No weakness and no numbness. No seizures, dizziness, or headaches. The patient reports no depression, no sleep disturbance, feeling safe in a relationship and no alcohol abuse. Patient reports on fatigue. Reports no runny nose or sinus pressure. No itching, no hives, and no frequent sneezing. OVERALL IMPRESSION: Unstable angina. We will give Plavix load, Lovenox times 1 dose, proceed with the LAD and circumflex tomorrow, RCA in the next day. TRANSINT:[id number] Voice Confirmation ID: [id number] DOCUMENT ID: [id number] MIRIAM HUNT MD at 1124 CC: [id number] DICTATION DATE: 10/29/16 174 COUNTY ATTORNEY: 10/29/162111 ADM IN [address] [place] [address]
--- NOTE | 2016-10-31 13:50 | NUR ---
BR UP. GROIN STABLE.
--- NOTE | 2016-10-31 14:29 | NUR ---
IV AND TELEMETRY DCD. DC PLANS GIVEN. UNDERSTANDING VOICED. ESCORTED TO CAR BY W/C.
--- NOTE | 2016-11-01 12:31 | OP ---
PATIENT NAME: SILVESTRE ALDANA MEDICAL RECORD: [id number] :33 LOCATION:D.M2 D.2114 ADMISSION DATE:10/29/16 SURGEON: MIRIAM HUNT MD DATE OF OPERATION: 10/31/2016 PROCEDURES: 1. PTCA stent RCA. 2. Selective coronary angiography. INDICATION: Angina and coronary artery disease. PROCEDURE IN DETAIL: After informed consent was obtained and after detailed explanation of risks, benefits as well as alternative therapies, the patient elected to proceed with angiogram and angioplasty. The right femoral area was prepped and draped in normal sterile fashion. The right femoral artery was cannulated via modified Seldinger technique with placement of 6-Swiss sheath. All catheters exchanged through this sheath. FINDINGS: The right coronary has 80% stenosis throughout the mid vessel, addressed with a 3.5 x 26 mm Eyad stent. Result was 0% residual stenosis. OVERALL IMPRESSION: Successful percutaneous transluminal coronary angioplasty stent of the right coronary artery going from 80% initial stenosis to 0% residual. TRANSINT:[id number] Voice Confirmation ID: [id number] DOCUMENT ID: [id number] MIRIAM HUNT MD at 1231 CC: [id number] DICTATION DATE: 10/31/16 0958 PRESCHOOL SUBSTITUTE TEACHER: 10/31/16 194 DIS IN 10/31/16 [id number] [place] [address]
--- NOTE | 2016-11-01 12:31 | DS ---
PATIENT:SILVESTRE TAYLOR :33 MEDICAL RECORD: [id number] DISCHARGE SUMMARY ADMISSION DATE: 10/29/16 DISCHARGE DATE: 10/31/16 DISCHARGE DIAGNOSES: 1. Angina. 2. Coronary artery disease. 3. Percutaneous transluminal coronary angioplasty stent in all 3 vessels, this admission. 4. Hypertension. 5. Hyperlipidemia. HOSPITAL COURSE: Mrs. Taylor presents with unstable anginal symptomatology, found to have 3-vessel coronary artery disease, underwent successful PTCA stent of all territories. Discharged home with the addition of aspirin and Plavix to her medical regimen. We will follow up with [facility] in 1 month. TRANSINT:[id number] Voice Confirmation ID: [id number] DOCUMENT ID: [id number] MIRIAM HUNT MD at 1231 CC: [id number] DICTATION DATE: 10/31/16 0959 CUSTOMER ORDER CLERK: 11/01/16 0041 DIS IN 10/31/[address] [address]
== END 2016-10-31 14:30 | disposition home or self-care (01) ==
LOC: D.ER 14:56 → D.M2 17:40 → OBSVTIME 17:40 → D.M2 10-31 14:30
PROVIDERS: Emergency Medicine; Nurse Practitioner Family; ADMIT Internal Medicine Interventional Cardiology
DX: I25.10 Atherosclerotic heart disease of native coronary artery without angina pectoris (principal); M62.830 Muscle spasm of back; I10 Essential (primary) hypertension; M54.2 Cervicalgia; J45.909 Unspecified asthma, uncomplicated

== ENCOUNTER → 2017-01-13 11:16 | Outpatient (CLI) | payer MEDICARE, BC ==
[2016-10-30 12:22] VITALS: BMI 25.3
[~2017-01-13 11:16] MED LIST changes: +DOXYCYCLINE HY100 M2 PO; +MULTIPLE VITAMI1 TA1 PO; +PLAVIX75 MG PO; +ROBAXIN500 MG PO
== END | disposition home or self-care (01) ==
LOC: D.RAD 01-09 13:30
DX: K44.9 Diaphragmatic hernia without obstruction or gangrene (principal); R10.13 Epigastric pain; R10.11 Right upper quadrant pain; R14.2 Eructation; R11.0 Nausea

== ENCOUNTER 2017-01-26 10:28 | Inpatient (IN) | payer MEDICARE, BC ==
[~2017-01-26 10:28] MED LIST changes: -DOXYCYCLINE HY100 M2 PO; -MULTIPLE VITAMI1 TA1 PO; -ROBAXIN500 MG PO
--- NOTE | 2017-01-26 10:50 | NUR ---
RECEIVED PT VIA DIRECT ADMIT. PT IS ALERT AND ORIENTED. UP AD MICHAEL. WILL ADMIT PT AND CONTINUE TO MONITOR.
[2017-01-26] MEDS ORDERED: MULTIPLE VITAMI1 TA1 PO (10:53)
[2017-01-26 10:54] VITALS: BP 139/64; BMI 24.6
[2017-01-26 11:55] VITALS: BP 139/64
--- NOTE | 2017-01-26 12:46 | NUR ---
ALTERNATIVE FINANCING SPECIALIST INITATED ORDERED.
--- NOTE | 2017-01-26 13:13 | NUR ---
CONSENTS FOR PROCEDURE SIGNED BY PT AND PLACED IN CHART. PT IS AWARE TO NOT EAT OR DRINK ANYTHING FOR PROCEDURE. PT DENIES ANY NEED AT THIS CURRENT TIME. WILL CONTINUE TO MONITOR.
--- NOTE | 2017-01-26 13:51 | NUR ---
OR HERE TO GET PT. INFORMED THAT THIS NURSE WAS NOT NOTIFIED TO GIVE PT PRE-OP MEDICATIONS. OR STATES THEY WILL WAIT UNTIL THEY ARE GIVEN. PRE-OP MEDICATIONS GIVEN WITH SIP OF WATER. IV FLUIDS HUNG AND TUBING PRIMED. CONSENTS SIGNED AND ARE IN CHART. GEOVANNI WITH RESP IS GOING TO MEET PT IN OR TO DO EKG.
[2017-01-26 14:28] LABS: BASOPHILS 0.2 % (0-2); EOSINOPHILS 1.8 % (0-7); HEMATOCRIT 38.3 % (36.0-48.0); HEMOGLOBIN 12.6 g/dL (12-16); IMMATURE GRANULOCYTES 0.1 % (0-5); MCH 30.2 pg (26.0-34.0); MCHC 32.9 g/dL (31.0-37.0); MCV 91.8 fL (80.0-100.0); MEAN PLATELET VOLUME 10.3 fL (7.4-10.4); MONOCYTES 7.2 % (2-11); NEUTROPHILS 71.7 % (40-80); PLATELET COUNT 259 10x3/uL (130-400); RBC 4.17 10x6/uL (4.00-5.40); RDW 12.5 % (11.5-14.5); WBC 9.5 10x3/uL (4.8-10.8)
[2017-01-26 14:30] LABS: CALC OSMOLALITY 275 mosm/kg (275-300); CALCIUM 8.5 mg/dL (8.5-10.1); CARBON DIOXIDE 25.9 mmol/L (21.0-32.0); CHLORIDE - SERUM 103 mmol/L (98-107); CREATININE - SERUM 0.6 mg/dL (0.6-1.3); GLUCOSE 107 mg/dL (74-106); POTASSIUM - SERUM 4.1 mmol/L (3.5-5.1); SODIUM 138 mmol/L (136-145); UREA NITROGEN 12 mg/dL (7-18); eGFR NON AFRICAN AMERICAN > 90 mL/min (90-120)
--- NOTE | 2017-01-26 16:06 | NUR ---
RECEIVED REPORT FROM RECOVERY. AWAITING PT RETURN NOW.
[2017-01-26 16:15] VITALS: BP 168/77
--- NOTE | 2017-01-26 16:25 | NUR ---
RECEIVED PT VIA BED FROM RADIOLOGY. PT IS ALERT AND ORIENTED. ON ROOM AIR. PT IS C/O PAIN. PT HOOKED UP TO IV FLUIDS WITH SIMULATION SPECIALIST PUMP OF DILAUDID RUNNING ORDERED. PT HAS DRESSINGS TO PERINEAL/BUTTOCK AREA THAT IS PACKED DONE BY RADILOGY. MESH PANTIES ARE ON PT HOLDING PACKING IN PLACE. SLIGHT BLEEDING SEEN TO AREA. NO NEED AT THIS CURRENT TIME. PT INSTRUCTED TO PUSH SIMULATION SPECIALIST BUTTON WHEN NEEDED AND CAN HAVE IT. PT UNDERSTANDS. WILL CONTINUE TO MONITOR.
--- NOTE | 2017-01-26 17:14 | NUR ---
CALLED INTO PTS ROOM FOR PT BEING NAUSEOUS. GAVE PT EMESIS BAG AND BASIN. PLACED COOL WASH CLOTH ON PTS FOREHEAD. KRISTY, NEWS CAMERA OPERATOR IS PAGING DR. REZA NOW TO SEE ABOUT GETTING PT SOMETHING FOR NAUSEOUS.
--- NOTE | 2017-01-26 17:30 | NUR ---
RECEIVED CALL FROM DR. REZA. NEW ORDERS RECEIVED FOR ZOFRAN.
--- NOTE | 2017-01-26 17:59 | NUR ---
PT IS CURRENTLY SITTING UP IN BED WITH EYES OPEN RESTING. HONEY PATRICIA ASSISTED PT ON BEDPAN. PT STATES SHE CANNOT GO AT THIS TIME. THIS NURSE PLACED NEW GAUZE PADS AND ABD BAD ON PTS PROCEDURE SITE (PERINEAL AREA) AND SECURED IT WITH MESH PANTIES. PT GIVEN ZOFRAN PRN ORDERED FOR NAUSEA. HONEY PATRICIA PLACED CLEAN LINEN ON PTS BED. NO FURTHER NEED AT THIS TIME. WILL CONTINUE TO MONITOR.
--- NOTE | 2017-01-26 20:31 | NUR ---
ASSISTED PATIENT TO THE BSC WITH HONEY MIMS. PT URINATED 250 ML. PATIENT DENIES OTHER NEEDS AT THIS TIME. BED IN LOWEST POSITION AND CALL LIGHT WITHIN REACH. ENCOURAGED THE PT TO CALL IF SHE HAS NEEDS.
[2017-01-26 22:08] VITALS: BP 123/59
[2017-01-27] VITALS (7 sets, daily range): BP systolic 123–149; BP diastolic 51–96; BMI 24.6
[2017-01-27 05:35] LABS: BASOPHILS 0.1 % (0-2); EOSINOPHILS 0.4 % (0-7); HEMATOCRIT 38.5 % (36.0-48.0); HEMOGLOBIN 12.8 g/dL (12-16); IMMATURE GRANULOCYTES 0.2 % (0-5); LYMPHOCYTES 11.6 % (15-50); MCH 30.4 pg (26.0-34.0); MCHC 33.2 g/dL (31.0-37.0); MCV 91.4 fL (80.0-100.0); MEAN PLATELET VOLUME 10.8 fL (7.4-10.4); MONOCYTES 8.6 % (2-11); NEUTROPHILS 79.1 % (40-80); PLATELET COUNT 293 10x3/uL (130-400); RBC 4.21 10x6/uL (4.00-5.40); RDW 12.5 % (11.5-14.5); WBC 8.1 10x3/uL (4.8-10.8)
[2017-01-27 05:55] LABS: CALC OSMOLALITY 271 mosm/kg (275-300); CALCIUM 8.8 mg/dL (8.5-10.1); CARBON DIOXIDE 26.4 mmol/L (21.0-32.0); CHLORIDE - SERUM 102 mmol/L (98-107); CREATININE - SERUM 0.7 mg/dL (0.6-1.3); GLUCOSE 139 mg/dL (74-106); SODIUM 136 mmol/L (136-145); eGFR NON AFRICAN AMERICAN 85 mL/min (90-120)
[2017-01-27 05:57] LABS: UREA NITROGEN 8 mg/dL (7-18)
--- NOTE | 2017-01-27 08:05 | OP ---
PATIENT NAME: SILVESTRE ALDANA MEDICAL RECORD: [id number] :34 LOCATION:[id number] ADMISSION DATE:01/26/17 SURGEON: MILTON YOU MD DATE OF OPERATION: 01/26/2017 SURGEON: Milton You MD PREOPERATIVE DIAGNOSIS: Perirectal abscess. POSTOPERATIVE DIAGNOSIS: Perirectal abscess. PROCEDURE PERFORMED: Incision and drainage of perirectal abscess. ANESTHESIA: General. COMPLICATIONS: None. SPECIMENS: 1. Tissue culture. 2. Aerobic cultures. 3. Anaerobic cultures. Case was grossly contaminated. ESTIMATED BLOOD LOSS: 30 cc. OPERATIVE COURSE: After consent was obtained, the patient was taken to the operating room and placed in supine position on the operating table. Next, general anesthesia was given via endotracheal intubation. Thereafter, the patient was placed in stirrups. The perineum was prepped and draped in typical sterile fashion. Local anesthetic was administered. The patient 2 had distinct areas of induration with open draining lesions, one openings of the left anterior lower labia and the other was to the right of the rectum, but areas were incised with a 15 blade scalpel. Anaerobic and aerobic cultures were sent. Tissue samples were sent for culture, both the wounds were opened and bluntly dissected all loculations, broken up with finger dissection. The abscesses were continuous. Once this was copiously irrigated and suctioned, the wounds were packed with Kerlix gauze, soaked in Betadine and hydrogen peroxide. The wound was then cleaned and covered with sterile gauze dressings and an ABD. The abscess measured in total 8 cm x 4 cm x 3 cm. At the end of the procedure, all needle and instrument counts were correct. No complications occurred. The patient extubated and transferred to the PACU in stable condition. TRANSINT:[id number] Voice Confirmation ID: [id number] DOCUMENT ID: [id number] MILTON YOU MD at 0805 CC: [id number] DICTATION DATE: 01/26/17 1535 [place] OPERATOR: 01/26/171913 ADM IN [facility] [address] [place] [address]
--- NOTE | 2017-01-27 08:26 | NUR ---
INTRODUCED MYSELF TO PT PRIMARY RN FOR TODAYS SHIFT. AT BEDSIDE AND DISCUSSED WITH PT ABOUT CHANGING HER BATH TESTER DILAUDID TO PO PAIN CONTROL R/T PT ITCHING AND POSSIBLY REACTING TO DILAUDID. WASTED 15ML OF NARCOTIC WITH WITNESS IN PYXIS SYSTEM. TUBING CHANGED OUT AND PT HAS D5 1/2 NS @75ML/HR INFUSING VIA R.AC PIV WITH DRSG CDI AND SWAB CAPS IN USE. PT USED BR AND I PROVIDED HER WITH GUAZE IN MESH PANTIES TO KEEP PACKING ENFORCED. PROVIDE PT WITH AM MEDICATIONS AND MIXED HER MIRALAX WITH CRANBERRY JUICE REQUESTED, PT C/O ITCHING AND WAS ALSO PROVIDED WITH PRN BENADRYL. ASSISTED PT BACK INTO BED AND APPLIED SCDS. PT VOICED THANKS AND DENIES ANY CURRENT PAIN OR NEEDS AT THIS TIME. WILL CPOC.
--- NOTE | 2017-01-27 11:15 | NUR ---
PROVIDED PT WITH PRN PAIN MEDICATION REQUESTED. PT C/O HER NECK BEING STIFF AND TIGHT ACHING AND POSSIBLY FROM SLEEPING SHE STATES. WILL PROVIDED WARM CLOTH TO TRY AND HELP WITH PAIN. PT VOICED THANKS AND DENIES ANY FURTHER NEEDS AT THIS TIME. CL IN REACH, BED IN LOWEST, SIDE RAILS X2. WILL CPOC.
--- NOTE | 2017-01-27 13:47 | NUR ---
Patient Name: SILVESTRE ALDANA Admission Status: Elective Accout number: [id number] Admission Date: 01-26-2017 : 1934 Admission Diagnosis: Attending: PAOLA REZA Current LOS: 1 Anticipated DC Date: 01-29-2017 Planned Disposition: Home with Home Health Primary Insurance: MEDICARE A & B Discharge Planning Comments: CM MET WITH PATIENT REGARDING D/C NEEDS AND PLANS. PATIENT STATED SHE LIVES WITH HER SPOUSE (CASEY) AND HE WILL DRIVE HER HOME AT DISCHARGE. PATIENT HAS NO STEPS THAT SHE HAS TO USE AT HER HOME. PATIENT IS INDEPENDENT WITH HER CARE AND HAS A SHOWER CHAIR, AND CANE AT HER HOME. PATIENT STATES HER PCP IS DR. REZA AND PHARMACY IS [facility]. PATIENT HAS SIGNED THE JOSE RAUL FORM WITH [facility]. CM WILL CONTINUE TO FOLLOW PATIENT WITH D/C NEEDS AND PLANS. [facility] CASEY (SPOUSE) [phone], OR CELL [phone] Uniform Maker: Carol Nicholson Is the patient Alert and Oriented? Yes 0 * How many steps to enter\exit or inside your home? 0 0 * PCP DR. REZA 0 * Pharmacy [facility] 0 * Preadmission Environment Home with Family 0 * ADLs Independent 0 * Equipment Cane Shower Chair 0 * List name and contact numbers for known caregivers / representatives who currently or will assist patient after discharge: CASEY (SPOUSE) [phone] CELL [phone] * Community resources currently utilized None 0 * Additional services required to return to the preadmission environment? Yes 0 * Can the patient safely return to the preadmission environment? Yes 0 * Has this patient been hospitalized within the prior 30 days at any hospital? No 0 Grand Total: 0
--- NOTE | 2017-01-27 14:29 | NUR ---
DRSG CHANGE PT HAS 2 INCISIONS TO PERIRECTAL AREA, BOTH WERE PACKED WITH SALINE GUAZE. REMOVED ALL PREVIOUS PACKING WITH BLOODY DRAINAGE NOTED ON PACKING. NO ODOR NOTED. PT C/O SEVERE BURNING AND PAIN WITH DRSG CHANGE. NEWLY PACKED SALINE GUAZED IN PLACE, NO TUNNELING NOTED, WOUND BED DARK RED WITHOUT S/S OF CURRENTLY BLEEDING OR INFECTION NOTED. ABDOMINAL PAD IN PLACE OVER BOTH INCISION SITES WITH MESH PANTIES TO HOLD IN. PT DENIES ANY FURTHER NEEDS AT THIS TIME. WILL CPOC.
--- NOTE | 2017-01-27 17:14 | NUR ---
PROVIDED PT WITH PRN MORPHINE REQUESTED FOR INCISIONAL PAINS. PT VOICED THANKS AND IS SITTING UP IN BED WAITING ON DINNER TRAY. RR NONLABORED ON RA. PT DENIES ANY FURTHER NEEDS AT THIS TIME. CL IN REACH. WILL CPOC.
--- NOTE | 2017-01-27 18:52 | NUR ---
PT CALLED C/O NOT HAVING A BOWEL MOVEMENT ALL DAY AND NOW HAS DIARRHEA. PTS PACKING FROM HER TWO PERIRECTAL INCISIONS ARE FALLING OUT, REMOVED AND REPACKED. ASSISTED PT BACK INTO BED. NO FURTHER NEEDS AT THIS TIME. WILL CPOC.
--- NOTE | 2017-01-27 19:30 | NUR ---
RECEIVED PT IN BED AAOX4 RESP UNLABORED SKIN W/D COLOR WNL DENIES ANY NEEDS AT THIS TIME NAD NOTED
[2017-01-28 04:00] VITALS: BP 151/47
--- NOTE | 2017-01-28 04:18 | NUR ---
PATIENT IS AWAKE, ALERT AND ORIENTED X'S 4. RESPIRATIONS ARE EVEN AND UNLABORED ON ROOM AIR. PATIENT VERBALIZING PAIN A 10/10. ADMINISTERED 2MG OF MORPHINE. EDUCATED PATIENT ON FALL PRECAUTIONS. PUT A RITCHIE ALARM ON PATIENT'S BED. TOLD HER NOT TO GET UP WITHOUT ASSISTANCE. SHE VERBALIZED UNDERSTANDING AND AGREED. APPLIED SCDS TO BILATERAL LEGS. SHE DENIES ANY OTHER NEEDS AT THIS TIME.
[2017-01-28 05:55] LABS: BASOPHILS 0.2 % (0-2); EOSINOPHILS 3.8 % (0-7); HEMATOCRIT 41.5 % (36.0-48.0); HEMOGLOBIN 13.4 g/dL (12-16); IMMATURE GRANULOCYTES 0.3 % (0-5); LYMPHOCYTES 18.6 % (15-50); MCH 30.2 pg (26.0-34.0); MCHC 32.3 g/dL (31.0-37.0); MEAN PLATELET VOLUME 10.9 fL (7.4-10.4); MONOCYTES 7.3 % (2-11); NEUTROPHILS 69.8 % (40-80); PLATELET COUNT 346 10x3/uL (130-400); RBC 4.44 10x6/uL (4.00-5.40); RDW 12.7 % (11.5-14.5); WBC 8.8 10x3/uL (4.8-10.8)
[2017-01-28 05:58] LABS: MCV 93.5 fL (80.0-100.0)
--- NOTE | 2017-01-28 06:00 | NUR ---
PATIENT AMBULATED IN THE [place] 2 LAPS AROUND NURSE STATION, INDEPENDENTLY. GAIT STRONG AND STEADY. NO SIGNS OF WEAKNESS.
[2017-01-28 06:52] LABS: ANION GAP 11.9 mmol/L (8-16); CALCIUM 8.5 mg/dL (8.5-10.1); CARBON DIOXIDE 27.7 mmol/L (21.0-32.0); CREATININE - SERUM 0.8 mg/dL (0.6-1.3); POTASSIUM - SERUM 3.6 mmol/L (3.5-5.1)
[2017-01-28 07:50] VITALS: BP 134/56
--- NOTE | 2017-01-28 09:00 | NUR ---
IV IN RIGHT AC PAINFUL AND LEAKING SLIGHTLY. DC'D WITH TIP INTACT. RESITED TO RIGHT FA. 22 GUAGE X1 STICK WITH GOOD BLOOD RETURN NOTED.
--- NOTE | 2017-01-28 11:00 | NUR ---
WET TO DRY DRESSING CHANGE X2 AREAS DUE TO SOILED AND COMING LOOSE. PACKED WITH MOISTED (SALINE) GAUZE.
--- NOTE | 2017-01-28 12:15 | NUR ---
SUPERIOR WET TO DRY DRESSING CAME DISLOADGED. REPACKED WITH FRESH NORMAL SALINED MOISTENED GAUZE.
[2017-01-28 12:23] VITALS: BP 137/52
--- NOTE | 2017-01-28 12:44 | NUR ---
PT AOX4 RESP EVEN AND NONLABORED PT DENIES NEEDS AT THIS TIME PT HERE FOR A PERIRECTAL ABCESS FOR THIS VISIT IV TO LEFT AC PATENT AND INTACT AT THIS TIME SRX2 BED AT LOWEST SETTING CALL LIGHT WITHIN REACH WILL CONTINUE TO MONITOR
[2017-01-28 15:42] VITALS: BP 158/69
[2017-01-28 19:56] VITALS: BP 164/69
--- NOTE | 2017-01-28 21:12 | NUR ---
ALERT,ORIENTED. MORPHINE 2 MG GIVEN FOR COMPLAINTS OF PERINEAL PAIN. IV INFUSING TO RIGHT FOREARM WITHOUT REDNESS OR EDEMA NOTED. DRSG TO RACIEL AREA INTACT. CL IN REACH.
--- NOTE | 2017-01-29 01:30 | NUR ---
ANSWERED PATIENT'S CALL LIGHT. SHE STATED SHE IS TIRED SO SHE IS CALLING TO HAVE SOMEONE IN THE ROOM WHILE SHE GETS UP TO THE BEDSIDE COMMODE. STAYED WITH PATIENT, THE ONLY ASSISTANCE SHE REQUIRED WAS PUSHING THE IV POLE. SHE AMBULATED AROUND THE BED, TO THE BEDSIDE COMMODE, THEN TO THE SINK TO WASH HER HANDS AND BACK TO BED. SHE REQUESTED HER DRESSINGS BE CHANGED, SINCE SHE HAD A BOWEL MOVEMENT. CHANGED BOTH OF HER DRESSING. PACKED WITH MOIST KERLIX. PATIENT DENIES ANY OTHER NEEDS AT THIS TIME. BED IN LOWEST POSITION, CALL LIGHT IN REACH. BED RIALS UP X'S 2.
[2017-01-29 04:00] VITALS: BP 167/75
--- NOTE | 2017-01-29 05:47 | NUR ---
AWAKE WITH NO COMPLAINTS. CL IN REACH
--- NOTE | 2017-01-29 07:15 | NUR ---
REPORT RECEIVED, ASSUMED CARE OF PT. RESTING, EASILY AROUSED, FAMILY AT BEDSIDE. R FOREARM IV INFUSING FLUIDS ORDERED, DRSG C/D/I. NO NEEDS VOICED AT THIS TIME. BED IN LOWEST POSITION, SIDE RAILS UP X 2, CALL LIGHT WITHIN REACH.
[2017-01-29 08:30] VITALS: BP 154/65
[2017-01-29 12:13] VITALS: BP 151/50
--- NOTE | 2017-01-29 12:16 | NUR ---
PT CALLED. PACKING HAD COME OUT WHILE IN BATHROOM. WET TO DRY PACKING DONE TO RIGHT VULVA INCSION AND LEFT PERIRECTAL INCISION. COVERED WITH DRY 2X2. HELPED WITH PACKING. TOLERATED WELL. CALL LIGHT IN REACH
--- NOTE | 2017-01-29 14:23 | NUR ---
NUTRITION F/U CHART REVIEWED. PT REMAINS IN ISOLATION. REG DIET BUT PO INTAKE ONLY ~ 25% RECENT MEALS. WILL PROVIDE DIET, MONITOR PO INTAKE. RD FOLLOWING
[2017-01-29 15:48] VITALS: BP 160/68
[2017-01-29 20:00] VITALS: BP 147/75
[2017-01-30] VITALS: BP 135/54
[2017-01-30 04:00] VITALS: BP 164/89
--- NOTE | 2017-01-30 06:00 | NUR ---
PT UP TO SHOWER. LINEN AND GOWN CHANGED. REPACKED BOTH PERIRECTAL ABSCESSES. LEFT LABIA IS RED AND SWOLLEN WITH POSSIBLE THIRD ABSCESS. APPLIED BUTT PASTE TO EXCORIATED PERIAREA. NO OTHER NEEDS. WILL CONTINUE TO MONITOR.
--- NOTE | 2017-01-30 07:45 | NUR ---
ASSESSMENT COMPLETE. IV TO R FA PATENT. D5 1/2 INFUSING AT 75 CC/HR VIA PUMP. ABSCESSES X 2 TO RIGHT BUTTOCK PACKED. CONTACT ISOLATION. DENIES ANY NEEDS AT THIS TIME.
[2017-01-30] MEDS ORDERED: ROBAXIN500 MG PO (07:59)
[2017-01-30] MEDS ORDERED: DOXYCYCLINE HY100 M2 PO (08:00)
[2017-01-30 08:50] VITALS: BP 162/72
--- NOTE | 2017-01-30 11:24 | NUR ---
PATIENT IS DISCHARGING HOME TODAY. FAMILY DRIVING HER. PATIENT DISCHARGING WITH [facility]. IMM SERVED
--- NOTE | 2017-01-30 11:30 | NUR ---
IV REMOVED. CATHETER TIP INTACT. DISCHARGE INSTRUCTION GIVEN TO PATIENT AND . SCRIPTS FOR DOXYCYCLINE AND ROBAXIN SENT TO [facility] BY DR REZA ELECTRONICALLY. PATIENT WORRIED THAT PACKING MAY BE ACCIDENTALLY REMOVED AT HOME. EXTRA GAUZE, SALINE, QTIPS, AND 4X4'S SENT WITH PATIENT.
--- NOTE | 2017-01-30 11:35 | NUR ---
DC'D HOME WITH . ESCORTED TO VEHICLE BY VOLUNTEER VIA WC WITH BELONGINGS.
== END 2017-01-30 11:35 | disposition home health service (06) | DRG 345 ==
LOC: D.MS 10:28
PROVIDERS: Surgery; ADMIT Family Medicine
PROC: 0D9P0ZZ Drainage of Rectum, Open Approach (ICD-10-PCS; principal; 2017-01-26 11:30)
DX: K61.1 Rectal abscess (principal); N76.4 Abscess of vulva; I25.10 Atherosclerotic heart disease of native coronary artery without angina pectoris; B95.62 Methicillin resistant Staphylococcus aureus infection as the cause of diseases classified elsewhere; M62.838 Other muscle spasm

== ENCOUNTER → 2017-03-10 15:09 | Outpatient (CLI) | payer MEDICARE, BC ==
[2017-01-27 14:31] VITALS: BMI 24.6
[~2017-03-10 15:09] MED LIST changes: +DOXYCYCLINE HY100 M2 PO; +MULTIPLE VITAMI1 TA1 PO; +ROBAXIN500 MG PO
== END | disposition home or self-care (01) ==
LOC: D.LABREF 15:09
DX: K61.1 Rectal abscess (principal)